=== PATIENT | female | born 1970 | race African-American/Black ===

== ENCOUNTER 2017-02-19 16:13 | Emergency (ER) | payer OTHER ==
[~2017-02-19] VITALS: Ht 170.2 cm; Wt 113.4 kg
[~2017-02-19 16:13] MED LIST: ASPIRIN81 MG ORAL; BACLOFEN10 MG ORAL; BENTYL10 MG ORAL; CLARITIN10 M2 ORAL; DUONEB 0.5-3(2.53 ML HHN; ENALAPRIL1.25 MG/ML IV; FLAX SEED OIL1000 MG PO; HEPARIN-D525000 UNI1 IV; HYDROCHLOROTHIA50 MG ORAL; MIRALAX17 G2 ORAL; Morphine Sulfate IVP; NAPROSYN500 M1 ORAL; NITROSTAT0.4 M1 SL; PROTONIX40 MG ORAL; RANITIDINE HCL150 MG ORAL; RESTORIL15 MG ORAL; SERTRALINE20 MG/1 M1 PO; TOPIRAMATE100 MG ORAL; ZOFRAN 4 MG4 MG/2 ML IVP; ZOFRAN ODT4 MG ORAL
[2017-02-19 16:26] VITALS: BP 111/81
[2017-02-19] MEDS ORDERED: Sodium Chloride 500ML 500 ML IV ONE (16:36)
--- NOTE | 2017-02-19 16:36 | Emergency Room Report ---
History of Present Illness General Chief Complaint: Vomiting Source: Patient, Medical Record Present Illness HPI Patient 46-year-old female presented after increased difficulty with vomiting. Patient had prior history of bariatric surgery which he states is likely to be gastric sleeve procedure. The patient presented for cholecystectomy she states that she had previously been hospitalized approximately 2 months ago. Patient prior history of pulmonary embolism diagnosed at [facility]. The patient denies taking anticoagulation currently. She denies any chest pain or shortness of breath. She reports having some difficulty swallowing. She reports having some sore throat. Allergies: Uncoded Allergies: NSAIDS (Allergy, Unknown, 02/02/17) Patient History Last Menstrual Period: hysterectomy done 2014 Reviewed Nursing Documentation: PMH: Agreed, PSxH: Agreed Nursing Documentation-PMH Past Medical History: No History, Except For Hx Cardiac Problems: Yes Hx Hypertension: Yes Hx Cancer: Yes Hx Gastrointestinal Problems: Yes Hx Neurological Problems: Yes Hx Headaches: Yes - migraine Review of Systems All Other Systems: negative except mentioned in HPI Physical Exam Vital Signs Date Time Temp Pulse Resp B/P (MAP) Pulse Ox O2 Delivery O2 Flow Rate FiO2 02/19/17 16:16 97.9 108 16 125/87 96 Room Air Sp02 EP Interpretation: reviewed, normal General Appearance: normal inspection, well appearing, no apparent distress, alert, GCS 15, non-toxic, obese Head: atraumatic ENT: normal ENT inspection, hearing grossly normal, normal voice Neck: normal inspection, full range of motion, supple, no bony tend Respiratory: normal inspection, lungs clear, normal breath sounds, no respiratory distress, no retraction, no wheezing Cardiovascular #1: regular rate, rhythm, no edema Gastrointestinal: normal inspection, normal bowel sounds, non tender, soft, no guarding, no hernia Genitourinary: no CVA tenderness Musculoskeletal: normal inspection, back normal, normal range of motion Neurologic: normal inspection, alert, responsive, speech normal Psychiatric: normal inspection, judgement/insight normal, mood/affect normal Skin: normal inspection, normal color, no rash Medical Decision Making Diagnostic Impression: Primary Impression: Gastroenteritis ER Course Patient presented for abdominal pain. Differential diagnoses included ischemic bowel, appendicitis, perforated viscus, abdominal aortic aneurysm, inferior myocardial infarction, viral gastroenteritis Because of complexity of patient's case laboratory testing and imaging studies were ordered.The laboratory studies are unremarkable. Patient's lipase was noted to be at the upper range of normal. Patient was given IV antiemetics. Patient started on IV fluids.The patient is advised followup with her primary care physician for GI referral Labs Test 02/19/17 16:45 White Blood Count 6.3 K/UL (4.8-10.8) Red Blood Count 4.71 M/UL (4.20-5.40) Hemoglobin 13.5 G/DL (12.0-16.0) Hematocrit 44.1 % (37.0-47.0) Mean Corpuscular Volume 94 FL (80-99) Mean Corpuscular Hemoglobin 28.8 PG (27.0-31.0) Mean Corpuscular Hemoglobin Concent 30.7 G/DL (32.0-36.0) Red Cell Distribution Width 17.2 % (11.6-14.8) Platelet Count 234 K/UL (150-450) Mean Platelet Volume 8.2 FL (6.5-10.1) Neutrophils (%) (Auto) 60.9 % (45.0-75.0) Lymphocytes (%) (Auto) 28.7 % (20.0-45.0) Monocytes (%) (Auto) 8.5 % (1.0-10.0) Eosinophils (%) (Auto) 1.1 % (0.0-3.0) Basophils (%) (Auto) 0.8 % (0.0-2.0) Sodium Level 143 MMOL/L (136-145) Potassium Level 4.0 MMOL/L (3.5-5.1) Chloride Level 105 MMOL/L (98-107) Carbon Dioxide Level 20 MMOL/L (21-32) Anion Gap 18 (5-15) Blood Urea Nitrogen 8 mg/dL (7-18) Creatinine 0.9 MG/DL (0.55-1.30) Estimat Glomerular Filtration Rate > 60 mL/min (>60) Glucose Level 86 MG/DL (74-106) Calcium Level 9.6 MG/DL (8.5-10.1) Total Bilirubin 0.5 MG/DL (0.2-1.0) Aspartate Amino Transf (AST/SGOT) 15 U/L (15-37) Alanine Aminotransferase (ALT/SGPT) 13 U/L (12-78) Alkaline Phosphatase 83 U/L (46-116) Troponin I 0.017 ng/mL (0.000-0.056) Total Protein 8.1 G/DL (6.4-8.2) Albumin 3.2 G/DL (3.4-5.0) Globulin 4.9 g/dL Albumin/Globulin Ratio 0.7 (1.0-2.7) Lipase 393 U/L (73-393) Rhythm Strip Diag. Results EP Interpretation: yes Rhythm: NSR - 87, no PVC's, no ectopy Last Vital Signs Date Time Temp Pulse Resp B/P (MAP) Pulse Ox O2 Delivery O2 Flow Rate FiO2 02/19/17 16:16 97.9 108 16 125/87 96 Room Air Status: improved Disposition: HOME, SELF-CARE Condition: Stable Scripts Cephalexin* (KEFLEX*) 500 Mg Capsule 500 MG ORAL Q6H, #28 CAP 0 Refills Prov: Ranjeet Valles 02/19/17 Famotidine/Ca Carb/Mag Hydrox (PEPCID COMPLETE TABLET CHEW) 1 Each Tab.chew 1 EACH PO TWICE A DAY, #30 TAB Prov: Ranjeet Valles 02/19/17 Ondansetron Odt* (ZOFRAN ODT*) 4 Mg Tab.rapdis 4 MG ORAL Q6H Y for Nausea & Vomiting, #30 TAB 0 Refills Prov: Ranjeet Valles 02/19/17 Ranjeet Valles Feb 19, 2017 16:36
[2017-02-19 17:10] LABS: BASOPHILS % (AUTO) 0.8 % (0.0-2.0); EOSINOPHILS % (AUTO) 1.1 % (0.0-3.0); LYMPHOCYTES % (AUTO) 28.7 % (20.0-45.0); MEAN CORPUSCULAR HEMOGLOBIN 28.8 PG (27.0-31.0); MEAN CORPUSCULAR HGB CONC 30.7 G/DL (32.0-36.0); MEAN CORPUSCULAR VOLUME 94 FL (80-99); MEAN PLATELET VOLUME 8.2 FL (6.5-10.1); MONOCYTES % (AUTO) 8.5 % (1.0-10.0); NEUTROPHILS % (AUTO) 60.9 % (45.0-75.0); PLATELET COUNT 234 K/UL (150-450); RED BLOOD COUNT 4.71 M/UL (4.20-5.40); RED CELL DISTRIBUTION WIDTH 17.2 % (11.6-14.8); WHITE BLOOD COUNT 6.3 K/UL (4.8-10.8)
[2017-02-19 18:16] LABS: SODIUM 143 MMOL/L (136-145)
[2017-02-19 18:17] LABS: CARBON DIOXIDE 20 MMOL/L (21-32); CHLORIDE 105 MMOL/L (98-107)
[2017-02-19 18:18] LABS: ALANINE AMINOTRANSFERASE 13 U/L (12-78); ANION GAP 18 (5-15); ASPARTATE AMINO TRANSFERASE 15 U/L (15-37); CALCIUM 9.6 MG/DL (8.5-10.1); CREATININE 0.9 MG/DL (0.55-1.30); GLOMERULAR FILTRATION RATE > 60 mL/min (>60); TOTAL PROTEIN 8.1 G/DL (6.4-8.2)
[2017-02-19 18:19] LABS: ALBUMIN/GLOBULIN RATIO 0.7 (1.0-2.7); LIPASE 393 U/L (73-393)
[2017-02-19] MEDS ORDERED: Sodium Chloride 500ML 500 ML IVPB ONE (19:00)
[2017-02-19] MEDS ORDERED: Lidocaine 2% Visc 15ml soln ORAL ONE (19:15)
[2017-02-19] MEDS ORDERED: ZOFRAN ODT4 MG ORAL (19:24)
[2017-02-19] MEDS ORDERED: PEPCID COMPLET1 EACH PO (19:24)
[2017-02-19 19:30] VITALS: BP 121/69
[2017-02-19] MEDS ORDERED: KEFLEX500 MG ORAL (19:59)
[2017-02-19 20:09] LABS: APPEARANCE,URINE SLIGHTLY CLOUDY; KETONES,URINE 3+ (NEGATIVE); LEUKOCYTE ESTERASE ,URINE 1+ (NEGATIVE); NITRITE,URINE NEGATIVE (NEGATIVE); PH,URINE 6 (4.5-8.0); PROTEIN,URINE 1+ (NEGATIVE); UROBILINOGEN,URINE 4 MG/DL (0.0-1.0)
[2017-02-19 20:24] LABS: BACTERIA,URINE MODERATE /HPF; ICTOTEST POSITIVE; SQUAMOUS EPITHELIAL CELL,UR MANY /LPF (NONE/OCC)
[2017-02-19 20:30] VITALS: BP 121/69
== END 2017-02-19 20:30 | disposition home or self-care (01) ==
LOC: EMR 16:35
DX: K52.9 Noninfective gastroenteritis and colitis, unspecified (principal); I10 Essential (primary) hypertension; Z86.69 Personal history of other diseases of the nervous system and sense organs; Z98.84 Bariatric surgery status
CPT/HCPCS: 36415; 80053; 81003; 81025; 83690; 84484; 85025; 87086; 96361; 96374; 96375; 99284; J2405; J7040; S0028